=== PATIENT | female | born 1995 | race Caucasian/White ===

== ENCOUNTER 2021-05-10 15:04 | Emergency (ER) | payer OTHER ==
[~2021-05-10] VITALS: Ht 152.4 cm; Wt 81.7 kg
[2021-05-10 15:22] LABS: ABSOLUTE NEUTROPHILS 4.4 thou/uL (1.4-8.2); BASOPHILS 1.1 % (0.0-2.0); EOSINOPHILS 1.7 % (0.0-3.0); HEMATOCRIT 41.8 % (37.0-47.0); HEMOGLOBIN 13.4 gm/dL (12.0-15.0); LYMPHOCYTES 32.1 % (24.0-44.0); MCH 25.4 pg (26.0-34.0); MCHC 32.2 g/dL (28.0-37.0); MONOCYTES 6.8 % (1.0-8.0); PLATELET COUNT 229 thou/uL (150-400); POLYS 58.3 % (36.0-66.0); RBC 5.29 mil/uL (4.20-5.00); RDW 16.8 % (10.5-14.5); WBC 7.5 thou/uL (4.0-11.0)
[2021-05-10 15:34] LABS: URINE BILIRUBIN NEGATIVE (Negative); URINE BLOOD 3+ (Negative); URINE CLARITY SL CLOUDY; URINE COLOR YELLOW; URINE GLUCOSE-RANDOM* NEGATIVE (Negative); URINE KETONES NEGATIVE (Negative); URINE LEUKOCYTES-REFLEX TRACE (Negative); URINE NITRITE-REFLEX NEGATIVE (Negative); URINE PROTEIN (DIPSTICK) TRACE (Negative)
[2021-05-10 15:37] LABS: CALCIUM 9.3 mg/dL (8.5-10.1); CREATININE 1.1 mg/dL (0.6-1.0); POTASSIUM 4.3 mmol/L (3.5-5.1)
[2021-05-10 15:47] LABS: ALBUMIN 3.8 g/dL (3.4-5.0); TOTAL BILIRUBIN 0.2 mg/dL (0.2-1.0); TOTAL PROTEIN 7.9 g/dL (6.4-8.2)
[2021-05-10 15:51] LABS: SQUAMOUS 4-10 Moderate /LPF (0-3)
[2021-05-10 15:56] LABS: URINE RBC 1-2 Rare /HPF (NONE SEEN); URINE WBC-REFLEX 6-15 Few /HPF (0-5)
[2021-05-10 17:25] LABS: AMP/METHAMP Negative (Negative); BARBITURATES Negative (Negative); BENZODIAZEPINES Negative (Negative); COCAINE Negative (Negative); METHADONE Negative (Negative); OPIATES Negative (Negative); PCP Negative (Negative)
[2021-05-10 18:57] VITALS: BP 128/85
--- NOTE | 2021-05-11 06:50 | EKG ---
[address] [address] ELECTROCARDIOGRAM REPORT Name: DIPAK FINN Room #: [facility] Christianne#: [id number] Admission: 05/10/21 Attend Phys: Discharge: 05/10/21 Date of : [birth year] Report #: [id number] [facility] ED Test Date: 2021-05-10 Test Time: 15:04:46 Pat Name: DIPAK FINN Department: Room: Gender: F Nursery Teacher: : 1995 Requested By: Marlys Cali Order Number: [id number] MD: Darius Bolden Measurements Intervals [place] Rate: 73 P: 74 DC: 145 QRS: 58 QRSD: 85 T: 36 QT: 368 QTc: 406 Interpretive Statements Sinus rhythm No previous ECG available for comparison Electronically Signed On 05-11-2021 6:49:46 CDT by Darius Bolden [email or web address] <ELECTRONICALLY SIGNED> By: Darius Bolden MD, [facility] 05/11/21 0649 1504 1504 Darius Bolden MD, FACC /EPI
== END 2021-05-10 19:00 | disposition home or self-care (01) ==
LOC: ER 15:04
PROVIDERS: Physician Assistant
DX: R07.89 Other chest pain (principal); Z20.822 Contact with and (suspected) exposure to COVID-19; I10 Essential (primary) hypertension